=== PATIENT | female | born 1940 | race Caucasian/White ===

== ENCOUNTER → 2018-07-21 | Outpatient (CLI) | payer OTHER | END | disposition home or self-care (01) | LOC: OIH 14:16 | PROVIDERS: ATTEND Family Medicine | DX: Z13.6 Encounter for screening for cardiovascular disorders (principal) | CPT/HCPCS: 75571 ==

== ENCOUNTER 2018-07-27 09:59 | Observation (INO) | payer OTHER ==
[~2018-07-27] VITALS: Ht 162.6 cm; Wt 120.2 kg
[2018-07-27] MEDS ORDERED: ASPIRIN 325 MG TABLET ONE (10:28)
[2018-07-27 10:35] LABS: BASOPHILS % (AUTO) 0.7 % (0.0-5.0); EOSINOPHILS % (AUTO) 4.5 % (0.0-8.0); LYMPHOCYTES % (AUTO) 33.5 % (21.0-51.0); MEAN CORPUSCULAR HEMOGLOBIN 26.1 pg (27.0-33.0); MEAN CORPUSCULAR HGB CONC 32.3 g/dL (32.0-36.0); MEAN CORPUSCULAR VOLUME 80.6 fL (79-99); MONOCYTES % (AUTO) 9.4 % (3.0-13.0); NEUTROPHILS % (AUTO) 51.9 % (40.0-77.0); NUCLEATED RED BLOOD CELLS 0.1 % (0.0-0.19); PLATELET COUNT (AUTO) 181 K/uL (130-400); RED BLOOD CELL COUNT(AUTO) 5.21 MIL/uL (4.00-5.50); RED CELL DISTRIBUTION WIDTH 14.8 % (11.0-15.5); WHITE BLOOD COUNT (AUTO) 5.2 K/uL (4.8-10.8)
[2018-07-27 10:42] LABS: CREATININE 0.9 mg/dL (0.5-1.5); POTASSIUM 3.9 mmol/L (3.5-5.1)
[2018-07-27 10:48] LABS: ALBUMIN 3.5 g/dL (3.5-5.0); BILIRUBIN,TOTAL 0.4 mg/dL (0.2-1.0); TOTAL PROTEIN, SERUM 7.2 g/dL (6.0-8.3)
[2018-07-27 10:49] LABS: INR 0.94 (0.85-1.15); PROTHROMBIN TIME 9.9 SEC (9.6-11.6)
[2018-07-27 11:01] LABS: B-TYPE NATRIURETIC PEPTIDE 63 pg/mL (0-100)
[2018-07-27] MEDS ORDERED: ACETAMINOPHEN 325 MG TAB PO PRN (14:30)
[2018-07-27] MEDS ORDERED: ONDANSETRON HCL 4 MG/2 ML VIAL IV PRN (14:30)
[2018-07-27] MEDS ORDERED: HYDRALAZINE HCL 20 MG/ML VIAL IV PRN (14:30)
[2018-07-27] MEDS ORDERED: MORPHINE SULFATE 2 MG/ML 1ML SYG IV PRN (14:30)
[2018-07-27 15:35] VITALS: BP 132/63
[2018-07-27] MEDS ORDERED: BENA20TA10 PO (16:21)
[2018-07-27 17:40] LABS: CHOLESTEROL 153 mg/dL (<200); HDL CHOLESTEROL 31 mg/dL (35-85); LDL DIRECT 107 mg/dL (0-99); TRIGLYCERIDES 117 mg/dL (30-200)
[2018-07-27 20:00] VITALS: BP 120/54
[2018-07-27] MEDS: FAMOTIDINE/PF 20 MG/2 ML VIAL IV SCH (22:32)
[2018-07-28] VITALS (7 sets, daily range): BP systolic 119–136; BP diastolic 51–82
--- NOTE | 2018-07-28 03:00 | NUR ---
HEART RATE Tele-monitor called to report that patient's heart rate dropped to the 40s, now sustaining in the 30s. Patient is asleep in bed; woke up patient to see how she's feeling. Patient states she feels fine at the moment but felt awful before going to sleep. States she just feel asleep. Obtained vital signs and with normal limits; vital signs have been documented. No shortness of breath or distress. No chest pain at this time but states she has a headache. Will medicate patient for pain and continue to monitor patient.
[2018-07-28] MEDS ORDERED: MORPHINE SULFATE 4 MG/1ML SYG ONE (03:12)
[2018-07-28] MEDS ORDERED: MORPHINE SULFATE 4 MG/1ML SYG IV PRN (03:15)
--- NOTE | 2018-07-28 03:20 | NUR ---
CHEST PAIN Before administering pain medication, patient states she has chest pain in the sternum area. On a pain scale of zero to ten, patient states a 6 and describes chest pain as pressure. Administer pain medication, Morphine 2 mg ivp. Darnell ACHARYA juvenile probation officer; Pradip Tellez NP is juvenile probation officer. Informed patient of heart rate episode and now experiencing chest pain. Obtained orders to do a stat EKG and cardiac panel. Also placed patient on a nitro paste 0.5 inch q6h. Will follow orders and continue to monitor patient.
[2018-07-28] MEDS ORDERED: NITROGLYCERIN 1GM/1 INCH PACKET TD ONE (03:24)
[2018-07-28] MEDS: NITROGLYCERIN 1GM/1 INCH PACKET TD SCH ×4 (03:30→21:40)
--- NOTE | 2018-07-28 03:59 | NUR ---
PATIENT STATUS Patient resting in bed, AA&O X3. No shortness of breath or distress. No chest pain or pain at this time. Patient states she feels a little better. Placed call light within reach and encouraged to call for assistance. Will continue to monitor patient.
[2018-07-28 04:09] LABS: CREATINE KINASE, TOTAL 106 U/L (21-232); MYOGLOBIN 50 ng/mL (10-92); TROPONIN I < 0.04 ng/mL (0.00-0.06)
[2018-07-28] MEDS: ENOXAPARIN SODIUM 40 MG/0.4 ML SYRINGE SQ SCH (09:00)
[2018-07-28] MEDS: ASPIRIN 325 MG TABLET PO SCH (09:00)
[2018-07-28] MEDS: FAMOTIDINE/PF 20 MG/2 ML VIAL IV SCH ×2 (09:00→21:00)
[2018-07-28] MEDS ORDERED: LORAZEPAM 0.5 MG TABLET PO SCH (09:15)
[2018-07-28] MEDS ORDERED: REGADENOSON 0.4 MG/5 ML PF SYG IVP SCH (09:15)
[2018-07-28] MEDS: BENAZEPRIL HCL 10 MG TABLET PO SCH (09:30)
--- NOTE | 2018-07-28 10:50 | NUR ---
C CONSULT UNABLE TO ASSESS PATIENT SHE IS OUT OF ROOM FOR [facility] SCAN.
--- NOTE | 2018-07-28 13:03 | NUR ---
DCP CM met with pt discussed dc plans. Pt is independent prior to admission, lives at home with significant other, daughter lives close by. Denies any equipments/services. Pt feels safe to go back home, significant other and daughter able to assist with transportation and needs as necessary. DC plan to home once stable. CM to cont to follow up. Addendum: 07/28/18 at 1304 by RAPHAEL VILLASENOR LVN CM Amended: Links added.
--- NOTE | 2018-07-28 20:10 | NUR ---
ECHO PHARMACY CUSTOMER CARE SPECIALIST HAS CALLED STATING HE SPOKE TO DR. BAEZ REGARDING THE EXAM. DR. BAEZ STATES THIS PATIENT CAN BE DISCHARGED IF APPROVED BY THE PRIMARY PHYSICIAN
--- NOTE | 2018-07-28 20:16 | NUR ---
Re: 2d echo & Lexiscan stress test Received a call from Anthony Dolan DJ requesting to obtain d/c order for this case as she did received a call from Dr. Xiao stating stress test was negative & 2d-echo that was just done at around 1900 was reported by the tech to Dr. Xiao who also told the Anthony dolan the per Dr. Xiao was also negative. Page Pradip SEARCH ENGINE OPTIMIZATION ANALYST to request d/c order who stated he does not discharge pt at night, to wait in AM. Anthony Dolan was made aware.
[2018-07-29 03:30] VITALS: BP 107/45
[2018-07-29] MEDS: NITROGLYCERIN 1GM/1 INCH PACKET TD SCH ×2 (03:50→09:30)
[2018-07-29 05:53] LABS: HEMATOCRIT 37.6 % (36-48); MEAN CORPUSCULAR HEMOGLOBIN 25.7 pg (27.0-33.0); MEAN CORPUSCULAR VOLUME 80.4 fL (79-99); NUCLEATED RED BLOOD CELLS 0.1 % (0.0-0.19); PLATELET COUNT (AUTO) 166 K/uL (130-400); RED BLOOD CELL COUNT(AUTO) 4.68 MIL/uL (4.00-5.50); RED CELL DISTRIBUTION WIDTH 14.5 % (11.0-15.5); WHITE BLOOD COUNT (AUTO) 5.5 K/uL (4.8-10.8)
[2018-07-29 05:55] LABS: ALBUMIN 2.9 g/dL (3.5-5.0); BILIRUBIN,TOTAL 0.5 mg/dL (0.2-1.0); CREATININE 0.9 mg/dL (0.5-1.5); POTASSIUM 3.7 mmol/L (3.5-5.1)
[2018-07-29 07:58] VITALS: BP 129/63
[2018-07-29] MEDS: BENAZEPRIL HCL 10 MG TABLET PO SCH (09:00)
[2018-07-29] MEDS: ENOXAPARIN SODIUM 40 MG/0.4 ML SYRINGE SQ SCH (09:00)
[2018-07-29] MEDS ORDERED: PANT40TA25 PO (09:27)
[2018-07-29] MEDS: ASPIRIN 325 MG TABLET PO SCH (09:53)
--- NOTE | 2018-07-29 11:09 | NUR ---
DISCHARGE PATIENT GIVEN DISCHARGE INSTRUCTIONS. PATIENT VERBALIZED UNDERSTANDING OF ALL EDUCATION GIVEN VIA TEACH BACK ON FOLLOW UP APPOINTMENTS. IV DISCONTINUED, CATHETER INTACT. PATIENT LEFT VIA WHEELCHAIR TO PRIVATE CAR. ALL BELONGINGS TAKEN WITH. NO DISTRESS NOTED UPON DISCHARGE.
[2018-07-29] MEDS ORDERED: FAMOTIDINE 20MG TAB 20 MG TAB PO SCH (21:00)
== END 2018-07-29 11:05 | disposition home or self-care (01) ==
LOC: EDH 09:59 → EDHIP 12:55 → 3CH 15:19
PROVIDERS: ADMIT Hospitalist; ATTEND Hospitalist
DX: M94.0 Chondrocostal junction syndrome [Tietze] (principal); M25.512 Pain in left shoulder; E66.09 Other obesity due to excess calories; I11.9 Hypertensive heart disease without heart failure; K29.70 Gastritis, unspecified, without bleeding; Z68.42 Body mass index [BMI] 45.0-49.9, adult
CPT/HCPCS: 36415 ×3; 71045; 78452; 80053 ×2; 80061; 82550 ×2; 83874; 83880; 84484 ×2; 85025; 85027; 85610; 85730; 93005 ×2; 93017; 93306; 96374; 99284; A9500 ×2; G0378 ×46; J2270; J2785; J3490